=== PATIENT | female | born 1975 | race Caucasian/White ===

== ENCOUNTER → 2016-12-15 | Outpatient (CLI) | payer OTHER ==
[~2016-12-15] MED LIST: ANAPROX DS550 MG PO; BENTYL20 MG PO; CIPRO250 MG PO; CIPRO500 MG PO; FLUCONAZOLE100 MG PO; MULTIVITAMIN1 CTB PO; NORCO 5-325 TA1 EACH PO; PERCOCET 325 MG1 TA2; PERCOCET 325 MG1 TA2 PO; VIBRA-TAB100 MG PO; VICODIN 500 MG-1 TAB PO; ZOFRAN4 MG PO
[2016-12-15 14:22] LABS: BASO % 0.5 % (0.0-1.0); EOS # 0.1 10*3/uL (0.0-0.4); EOS % 1.4 % (1.0-4.0); HEMATOCRIT 45.5 % (37.0-47.0); HEMOGLOBIN 15.2 g/dl (12.0-16.0); LYMPH # 1.5 10*3/uL (1.3-4.4); LYMPH % 17.5 % (27.0-41.0); MEAN CELL VOLUME 96.4 fl (81.0-99.0); MEAN CORPUSCULAR HGB 32.2 pg (27.0-31.0); MEAN CORPUSCULAR HGB CONC 33.4 g/dl (33.0-37.0); MEAN PLATELET VOLUME 9.4 fl (9.6-12.3); MONO # 0.5 10*3/uL (0.1-1.0); MONO % 5.7 % (3.0-9.0); NEUT # 6.3 10*3/uL (2.3-7.9); NEUT % 74.7 % (47.0-73.0); PLATELET COUNT AUTOMATED 245 10*3/uL (130-400); RED BLOOD COUNT 4.72 10*6/uL (4.10-5.10); RED CELL DISTRI WIDTH 13.1 % (0-14.5); WHITE BLOOD COUNT 8.4 10*3/uL (4.8-10.8)
[2016-12-15 14:48] LABS: ALBUMIN 3.8 gm/dl (3.1-4.5); ALKALINE PHOSPHATASE 57 U/L (45-117); BUN 11 mg/dl (7-24); CHLORIDE 107 mmol/L (98-107); CHOLESTEROL 141 mg/dL (<200); CPK 46 U/L (26-192); CREATININE 0.79 mg/dL (0.55-1.02); FREE T4 0.99 ng/dl (0.76-1.46); HDL CHOLESTEROL 43 mg/dl (40-60); LDL CHOLESTEROL 85 mg/dL (9-159); POTASSIUM 4.3 mmol/L (3.5-5.1); SGOT/AST 9 IU/L (3-35); SGPT/ALT 16 U/L (12-78); SODIUM 139 mmol/L (136-145); TOTAL PROTEIN 6.9 gm/dL (6.4-8.2); TRIGLYCERIDES 65 mg/dl (<150); VLDL CHOLESTEROL 13 mg/dL (6-40)
[2016-12-15 14:53] LABS: THYROID STIM HORMONE (HS) 0.701 uIU/ml (0.358-4.75)
[2016-12-15 15:42] LABS: VITAMIN D, 25-HYDROXY 32.4 ng/mL (30-100)
== END | disposition home or self-care (01) ==
LOC: LAB 13:44
PROVIDERS: Internal Medicine
DX: Z13.1 Encounter for screening for diabetes mellitus (principal); E55.9 Vitamin D deficiency, unspecified; R53.81 Other malaise

== ENCOUNTER 2017-05-19 00:49 | Emergency (ER) | payer OTHER ==
[~2017-05-19] VITALS: Ht 177.8 cm; Wt 72.6 kg
[2017-05-19 01:10] LABS: BASO # 0.1 10*3/uL (0.0-0.1); BASO % 0.9 % (0.0-1.0); EOS # 0.2 10*3/uL (0.0-0.4); EOS % 2.1 % (1.0-4.0); HEMATOCRIT 43.8 % (37.0-47.0); HEMOGLOBIN 15.1 g/dl (12.0-16.0); LYMPH # 1.9 10*3/uL (1.3-4.4); LYMPH % 21.5 % (27.0-41.0); MEAN CORPUSCULAR HGB 32.8 pg (27.0-31.0); MEAN CORPUSCULAR HGB CONC 34.5 g/dl (33.0-37.0); MEAN PLATELET VOLUME 9.1 fl (9.6-12.3); MONO # 0.5 10*3/uL (0.1-1.0); NEUT % 69.2 % (47.0-73.0); PLATELET COUNT AUTOMATED 283 10*3/uL (130-400); RED BLOOD COUNT 4.61 10*6/uL (4.10-5.10); RED CELL DISTRI WIDTH 13.1 % (0-14.5); WHITE BLOOD COUNT 8.7 10*3/uL (4.8-10.8)
[2017-05-19 01:21] LABS: ACT PARTIAL THROMBO TIME 28.1 SECONDS (20.8-31.5)
[2017-05-19 01:30] LABS: ALBUMIN 4.2 gm/dl (3.1-4.5); ALKALINE PHOSPHATASE 71 U/L (45-117); BUN 9 mg/dl (7-24); CHLORIDE 107 mmol/L (98-107); CREATININE 0.68 mg/dL (0.55-1.02); POTASSIUM 3.8 mmol/L (3.5-5.1); SGPT/ALT 26 U/L (12-78); SODIUM 139 mmol/L (136-145); TOTAL PROTEIN 7.4 gm/dL (6.4-8.2)
[2017-05-19 01:35] LABS: SGOT/AST 13 IU/L (3-35); TROPONIN I < 0.015 ng/ml (<0.045)
[2017-05-19 03:28] VITALS: BP 123/75
[2017-05-19] MEDS ORDERED: PROTONIX40 MG PO (03:38)
== END 2017-05-19 03:51 | disposition home or self-care (01) ==
LOC: ED 00:49
PROVIDERS: Emergency Medicine Emergency Medical Services
DX: K52.9 Noninfective gastroenteritis and colitis, unspecified (principal); K21.9 Gastro-esophageal reflux disease without esophagitis; Z88.0 Allergy status to penicillin

== ENCOUNTER 2017-09-10 21:18 | Inpatient (IN) | payer OTHER ==
[~2017-09-10] VITALS: Ht 177.8 cm; Wt 79.8 kg
--- NOTE | ~2017-09-10 | DS ---
[place], [place] DISCHARGE SUMMARY NAME: KAM BOWER UNIT #: [id number] ROOM: 425 DOCTOR: JOSUE SERRA MD BIRTHDATE: [birth year] DOS: 09/14/2017 DISCHARGE DIAGNOSES: 1. Methicillin-resistant Staphylococcus aureus cellulitis involving the skin on the back of her right knee with significant induration and pain and difficulty walking. 2. Nicotine smoke dependence, 1 pack of cigarettes a day. 3. Previous history of pneumonia. HOSPITAL COURSE: The patient presented to [facility] Emergency Department with an insect bite at the back of her right knee and within the next few days, she developed a black spot at the site of the bite and spreading redness and induration with significant pain and high-grade fevers along with body aches and some nausea. The patient also had chills and rigors. The patient was admitted to the hospital and treated with IV vancomycin and Rocephin. Initially doxycycline was started, but then discontinued by Infectious Disease specialist. The patient's redness and swelling and induration have significantly improved with antibiotic treatment and no abscess was found on the CT scan and later on ultrasound. The patient still has some difficulty and pain when she walks because the infection is in the crease on the back of right knee, but it is much improved. The patient can stay off work for a week and hopefully then she can go back to work. Nicotine smoke dependence with the patient smoking 1 pack of cigarettes a day. The patient encouraged to stop smoking cigarettes. The patient says she does not need any nicotine patch or any other treatment. LABORATORY DATA: Lyme's titer was negative. No leukocytosis. Ultrasound and CT scan of the right knee area were normal. No signs of abscess or cellulitis involving the skin. Blood cultures were negative. DISCHARGE MANAGEMENT: Keflex 500 mg 3 times a day for 10 days, Bactrim-DS b.i.d. for 10 days. FOLLOWUP: With me in office next week. [place], [place] DISCHARGE SUMMARY NAME: KAM BOWER UNIT #: [id number] ROOM: 425 DOCTOR: JOSUE SERRA MD BIRTHDATE: [birth year] JOSUE SERRA MD CM:ANAND [id number] JOSUE SERRA MD 09/14/17 2014 interface
--- NOTE | ~2017-09-10 | PR ---
[place], [place] PROGRESS NOTE NAME: KAM BOWER UNIT #: [id number] ROOM: 425 DOCTOR: JOSUE SERRA MD BIRTHDATE: [birth year] DOS: 09/12/2017 SUBJECTIVE: The patient is still having significant pain, soreness and skin changes behind the right knee. VITAL SIGNS: Blood pressure 100/54, heart rate of 77 beats per minute, breathing normally, afebrile. IMPRESSION: The patient with severe cellulitis along with fever and difficulty with ambulation because of pain related to the cellulitis right behind her right knee. The patient has some skin changes locally for which I will check an ultrasound to see if an abscess is forming in the area, which may need to be drained. The patient is being treated with vancomycin and cefazolin intravenously. The patient with insect bite, possibility of a tick bite, patient receiving doxycycline. Nicotine smoke dependence, the patient encouraged to stop. JOSUE SERRA MD CM:PNTRANS [id number] JOSUE SERRA MD 09/13/17 0528 interface
--- NOTE | ~2017-09-10 | PR ---
[place], [place] PROGRESS NOTE NAME: KAM BOWER UNIT #: [id number] ROOM: 425 DOCTOR: JOSUE SERRA MD BIRTHDATE: [birth year] DOS: 09/13/2017 SUBJECTIVE: The patient's swelling and redness in the back of the right knee continues to improve. OBJECTIVE: VITAL SIGNS: Blood pressure 109/67, breathing 20 times per minute, tachycardic at 110 beats per minute, afebrile. GENERAL APPEARANCE: The patient is alert and oriented x 3, in no visible distress. HEENT AND NECK: Exam within normal limits. CARDIOVASCULAR SYSTEM: Heart rate is regular in rate and rhythm. S1 and S2 normally audible. LUNGS: Clear to auscultation. ABDOMEN: Soft, nontender. No obvious organomegaly. Bowel sounds are present. EXTREMITIES: Without significant cyanosis or edema. Induration, redness and swelling behind the right knee, which is improving. IMPRESSION: 1. The patient with methicillin-resistant Staphylococcus aureus cellulitis at the back of the right knee after an insect bite. Continues to improve with IV vancomycin. Dr. Jameel Mendoza has recommended couple of more days of IV antibiotics, then patient to be discharged to home on oral antibiotics. I will continue treatment. 2. Nicotine smoke dependence. The patient encouraged to stop smoking cigarettes. 3. Some suspicion of tick bite because of the skin rash. Lyme titer has been negative, but the patient is being treated with doxycycline as a precaution. JOSUE SERRA MD CM:PNTRANS [id number] JOSUE SERRA MD 09/25/17 0723 interface
--- NOTE | ~2017-09-10 | WRIGHTHP ---
[place], [place] PATIENT HISTORY AND PHYSICAL EXAM NAME: KAM BOWER [facility] #: [id number] UNIT #: [id number] ROOM: 425 DOCTOR: JOSUE SERRA MD BIRTHDATE: [birth year] DOS: 09/11/2017 HISTORY OF PRESENT ILLNESS: The patient is a 42-year-old female with a past medical history of: 1. Nicotine smoke dependence. 2. Previous history of pneumonia. The patient presented to the Emergency Department at [facility] with complaints of an insect bite at the back of her right knee, which resulted in a black spot at the site of the bite and spreading redness, swelling and pain. Later on the patient developed high grade fevers and body aches. The patient was sent to the Emergency Department and evaluated with a CAT scan, which did not show any abscess, but because of the fever, chills, rigors, body aches and an expanding redness and skin infection around the bite site, the patient was admitted for further management and Infectious Disease consult was obtained. After being started on IV antibiotics, the patient still has significant pain when she tries to get up and walk, but otherwise the redness has started improving. REVIEW OF SYSTEMS: LUNGS: No increasing shortness of breath. GASTROINTESTINAL: No nausea, vomiting, diarrhea or constipation. CARDIOVASCULAR: No chest pains or palpitations. FAMILY HISTORY: Noncontributory. SOCIAL HISTORY: Smokes 1 pack of cigarettes a day. Denies any alcohol or drug abuse. HOME MEDICATIONS: None. ALLERGIES: Known allergies to PENICILLIN. PHYSICAL EXAMINATION: GENERAL: Alert and oriented x 3, in no visible distress. HEENT AND NECK: Extraocular movements are intact. Sclerae are anicteric. Oral mucosa is moist and clean. No obvious facial weakness. Neck is supple without any lymphadenopathy. No thyromegaly. No JVD. No carotid arterial bruits. LUNGS: Clear to auscultation. No wheezing. No rhonchi. CARDIOVASCULAR SYSTEM: Heart rate is regular in rate and rhythm. S1 and S2 normally audible. No significant murmur or any other abnormal cardiac sounds. ABDOMEN: Soft, nontender. No obvious organomegaly. Bowel sounds are present. No obvious herniation. EXTREMITIES: Redness and swelling at the back of the right knee, measuring about 4inches, but apparently reducing from where the margins were in the ER last evening in the center of black spot. CENTRAL NERVOUS SYSTEM: Alert and oriented x 3. Cranial nerves II-XII are intact. Speech is normal. The patient is able to move all extremities. Normal muscle strength. Deep tendon reflexes are equal on both sides. Plantars were downgoing. [place], [place] PATIENT HISTORY AND PHYSICAL EXAM NAME: KAM BOWER UNIT #: [id number] ROOM: 425 DOCTOR: JOSUE SERRA MD BIRTHDATE: [birth year] LABORATORY DATA: Normal serum electrolytes. Normal CBC. Normal lactic acid level. IMPRESSION AND PLAN: 1. The patient is showing early signs of sepsis with chills, rigor, fever, body aches and rapidly spreading cellulitis at the back of the right knee. Since it was an insect bite, Lyme's disease is being considered and I will keep her on doxycycline for 2 weeks. The patient is also started on cefazolin and vancomycin. Infectious Disease consult has been obtained and the patient appears to be improving. 2. Nicotine smoke dependence. The patient smokes 1 pack of cigarettes a day. I had a good discussion with her regarding smoking cessation and she is considering it and she will let me know tomorrow. JOSUE SERRA MD CM:HISPHYS:PATIENT HISTORY AND PHYSICAL EXAMINATION [id number] JOSUE SERRA MD 09/11/17 1137 interface
[~2017-09-10 21:18] MED LIST changes: +PROTONIX40 MG PO
[2017-09-10 22:21] LABS: BASO % 0.4 % (0.0-1.0); EOS # 0.1 10*3/uL (0.0-0.4); EOS % 1.4 % (1.0-4.0); HEMATOCRIT 43.1 % (37.0-47.0); HEMOGLOBIN 14.5 g/dl (12.0-16.0); MEAN CELL VOLUME 95.8 fl (81.0-99.0); MEAN CORPUSCULAR HGB 32.2 pg (27.0-31.0); MEAN CORPUSCULAR HGB CONC 33.6 g/dl (33.0-37.0); MEAN PLATELET VOLUME 9.3 fl (9.6-12.3); MONO # 0.6 10*3/uL (0.1-1.0); MONO % 7.2 % (3.0-9.0); NEUT # 6.3 10*3/uL (2.3-7.9); NEUT % 78.9 % (47.0-73.0); PLATELET COUNT AUTOMATED 208 10*3/uL (130-400); RED CELL DISTRI WIDTH 13.4 % (0-14.5); WHITE BLOOD COUNT 7.9 10*3/uL (4.8-10.8)
[2017-09-10 22:34] LABS: BILIRUBIN NEGATIVE (NEGATIVE); BLOOD NEGATIVE (NEGATIVE); CLARITY CLEAR (CLEAR); COLOR YELLOW (YELLOW); GLUCOSE NEGATIVE (NEGATIVE); KETONE NEGATIVE (NEGATIVE); LEUKO ESTERASE NEGATIVE (NEGATIVE); NITRITE NEGATIVE (NEGATIVE); SPECIFIC GRAVITY <= 1.005 (1.005-1.030); UROBILINOGEN 0.2 E.U./dl (0.2-1.0)
[2017-09-10 22:35] LABS: ALBUMIN 3.8 gm/dl (3.1-4.5); ALKALINE PHOSPHATASE 65 U/L (45-117); BUN 8 mg/dl (7-24); CHLORIDE 108 mmol/L (98-107); POTASSIUM 3.5 mmol/L (3.5-5.1); SGOT/AST 13 IU/L (3-35); SGPT/ALT 22 U/L (12-78); SODIUM 141 mmol/L (136-145)
[2017-09-10 22:46] LABS: RBC 0-2 rbc/hpf (0-2)
[2017-09-11 01:05] VITALS: BP 106/64
[2017-09-11 01:46] VITALS: BP 124/73
[2017-09-11 06:19] LABS: BASO % 0.4 % (0.0-1.0); EOS # 0.1 10*3/uL (0.0-0.4); EOS % 0.8 % (1.0-4.0); HEMATOCRIT 42.3 % (37.0-47.0); HEMOGLOBIN 14.3 g/dl (12.0-16.0); LYMPH # 0.9 10*3/uL (1.3-4.4); LYMPH % 11.2 % (27.0-41.0); MEAN CELL VOLUME 95.3 fl (81.0-99.0); MEAN CORPUSCULAR HGB 32.2 pg (27.0-31.0); MEAN CORPUSCULAR HGB CONC 33.8 g/dl (33.0-37.0); MEAN PLATELET VOLUME 9.5 fl (9.6-12.3); MONO # 0.6 10*3/uL (0.1-1.0); MONO % 7.8 % (3.0-9.0); NEUT # 6.1 10*3/uL (2.3-7.9); NEUT % 79.7 % (47.0-73.0); PLATELET COUNT AUTOMATED 202 10*3/uL (130-400); RED BLOOD COUNT 4.44 10*6/uL (4.10-5.10); RED CELL DISTRI WIDTH 13.4 % (0-14.5); WHITE BLOOD COUNT 7.7 10*3/uL (4.8-10.8)
[2017-09-11 06:40] LABS: BUN 7 mg/dl (7-24); CHLORIDE 107 mmol/L (98-107); CREATININE 0.72 mg/dL (0.55-1.02); POTASSIUM 3.9 mmol/L (3.5-5.1); SODIUM 138 mmol/L (136-145)
[2017-09-11 08:00] VITALS: BP 112/70
[2017-09-11 12:00] VITALS: BP 109/66
[2017-09-11 16:00] VITALS: BP 116/67
[2017-09-11 20:00] VITALS: BP 108/63
[2017-09-12] VITALS: BP 109/62
[2017-09-12 07:39] LABS: BASO % 0.5 % (0.0-1.0); EOS # 0.2 10*3/uL (0.0-0.4); EOS % 2.5 % (1.0-4.0); HEMATOCRIT 40.3 % (37.0-47.0); HEMOGLOBIN 13.4 g/dl (12.0-16.0); LYMPH % 15.7 % (27.0-41.0); MEAN CELL VOLUME 96.6 fl (81.0-99.0); MEAN CORPUSCULAR HGB 32.1 pg (27.0-31.0); MEAN CORPUSCULAR HGB CONC 33.3 g/dl (33.0-37.0); MEAN PLATELET VOLUME 9.8 fl (9.6-12.3); MONO # 0.9 10*3/uL (0.1-1.0); MONO % 13.7 % (3.0-9.0); NEUT # 4.4 10*3/uL (2.3-7.9); NEUT % 67.4 % (47.0-73.0); PLATELET COUNT AUTOMATED 191 10*3/uL (130-400); RED BLOOD COUNT 4.17 10*6/uL (4.10-5.10); RED CELL DISTRI WIDTH 13.4 % (0-14.5); WHITE BLOOD COUNT 6.5 10*3/uL (4.8-10.8)
[2017-09-12 08:00] VITALS: BP 110/74; BP 116/78
[2017-09-12 08:06] LABS: BUN 8 mg/dl (7-24); CHLORIDE 106 mmol/L (98-107); CREATININE 0.69 mg/dL (0.55-1.02); POTASSIUM 4.1 mmol/L (3.5-5.1); SODIUM 140 mmol/L (136-145)
[2017-09-12 12:00] VITALS: BP 100/54
[2017-09-12 16:00] VITALS: BP 126/75
[2017-09-12 20:00] VITALS: BP 106/60
[2017-09-13] VITALS: BP 108/54
[2017-09-13 07:45] LABS: BASO % 0.6 % (0.0-1.0); EOS # 0.2 10*3/uL (0.0-0.4); HEMATOCRIT 41.7 % (37.0-47.0); HEMOGLOBIN 13.6 g/dl (12.0-16.0); LYMPH # 1.3 10*3/uL (1.3-4.4); LYMPH % 27.9 % (27.0-41.0); MEAN CORPUSCULAR HGB 31.6 pg (27.0-31.0); MEAN CORPUSCULAR HGB CONC 32.6 g/dl (33.0-37.0); MEAN PLATELET VOLUME 9.4 fl (9.6-12.3); MONO # 0.4 10*3/uL (0.1-1.0); NEUT # 2.8 10*3/uL (2.3-7.9); NEUT % 58.3 % (47.0-73.0); PLATELET COUNT AUTOMATED 223 10*3/uL (130-400); RED CELL DISTRI WIDTH 13.2 % (0-14.5); WHITE BLOOD COUNT 4.8 10*3/uL (4.8-10.8)
[2017-09-13 08:00] VITALS: BP 100/60
[2017-09-13 08:14] LABS: BUN 10 mg/dl (7-24); CHLORIDE 106 mmol/L (98-107); POTASSIUM 3.7 mmol/L (3.5-5.1); SODIUM 141 mmol/L (136-145)
[2017-09-13 08:16] LABS: CREATININE 0.75 mg/dL (0.55-1.02)
[2017-09-13 12:00] VITALS: BP 109/67
[2017-09-13 16:00] VITALS: BP 110/77
[2017-09-13 20:00] VITALS: BP 113/73
[2017-09-14] VITALS: BP 127/80
[2017-09-14 07:29] LABS: BASO % 0.7 % (0.0-1.0); EOS # 0.2 10*3/uL (0.0-0.4); EOS % 3.7 % (1.0-4.0); HEMATOCRIT 37.4 % (37.0-47.0); HEMOGLOBIN 12.6 g/dl (12.0-16.0); LYMPH # 1.3 10*3/uL (1.3-4.4); LYMPH % 22.5 % (27.0-41.0); MEAN CELL VOLUME 95.2 fl (81.0-99.0); MEAN CORPUSCULAR HGB 32.1 pg (27.0-31.0); MEAN CORPUSCULAR HGB CONC 33.7 g/dl (33.0-37.0); MEAN PLATELET VOLUME 9.2 fl (9.6-12.3); MONO # 0.4 10*3/uL (0.1-1.0); MONO % 7.3 % (3.0-9.0); NEUT # 3.8 10*3/uL (2.3-7.9); NEUT % 65.6 % (47.0-73.0); PLATELET COUNT AUTOMATED 216 10*3/uL (130-400); RED BLOOD COUNT 3.93 10*6/uL (4.10-5.10); RED CELL DISTRI WIDTH 13.1 % (0-14.5); WHITE BLOOD COUNT 5.7 10*3/uL (4.8-10.8)
[2017-09-14 07:50] LABS: BUN 11 mg/dl (7-24); CHLORIDE 111 mmol/L (98-107); CREATININE 0.59 mg/dL (0.55-1.02); SODIUM 143 mmol/L (136-145)
[2017-09-14 08:00] VITALS: BP 116/74
[2017-09-14 16:00] VITALS: BP 115/68
[2017-09-14] MEDS ORDERED: KEFLEX500 M1 PO (16:32)
[2017-09-14] MEDS ORDERED: BACTRIM 400-801 EACH PO (16:32)
== END 2017-09-14 18:55 | disposition home or self-care (01) | DRG 872 ==
LOC: ED 21:18 → EDHOLD 09-11 01:19 → 4E 09-11 01:19
PROVIDERS: Emergency Medicine; Internal Medicine
DX: A41.9 Sepsis, unspecified organism (principal); L03.115 Cellulitis of right lower limb; F17.210 Nicotine dependence, cigarettes, uncomplicated; B95.62 Methicillin resistant Staphylococcus aureus infection as the cause of diseases classified elsewhere; S80.261A Insect bite (nonvenomous), right knee, initial encounter; W57.XXXA Bitten or stung by nonvenomous insect and other nonvenomous arthropods, initial encounter; K21.9 Gastro-esophageal reflux disease without esophagitis; Z87.440 Personal history of urinary (tract) infections; Z98.51 Tubal ligation status; Z82.49 Family history of ischemic heart disease and other diseases of the circulatory system; Z83.3 Family history of diabetes mellitus; Z80.9 Family history of malignant neoplasm, unspecified; Z88.0 Allergy status to penicillin; Y93.89 Activity, other specified; Y92.89 Other specified places as the place of occurrence of the external cause; Y99.8 Other external cause status

== ENCOUNTER → 2018-10-22 | Outpatient (CLI) | payer OTHER ==
[~2018-10-22] MED LIST changes: +BACTRIM 400-801 EACH PO; +KEFLEX500 M1 PO
== END | disposition home or self-care (01) ==
LOC: US 13:27
DX: S70.11XA Contusion of right thigh, initial encounter (principal); S76.219A Strain of adductor muscle, fascia and tendon of unspecified thigh, initial encounter; R60.9 Edema, unspecified; R20.8 Other disturbances of skin sensation; X58.XXXA Exposure to other specified factors, initial encounter; Y93.89 Activity, other specified; Y92.89 Other specified places as the place of occurrence of the external cause; Y99.8 Other external cause status

== ENCOUNTER → 2018-11-05 | Outpatient (CLI) | payer OTHER ==
[2018-11-05 06:51] LABS: BASO # 0.1 10*3/uL (0.0-0.1); BASO % 0.8 % (0.0-1.0); EOS # 0.2 10*3/uL (0.0-0.4); EOS % 2.8 % (1.0-4.0); HEMOGLOBIN 13.5 g/dl (12.0-16.0); LYMPH # 1.9 10*3/uL (1.3-4.4); LYMPH % 24.8 % (27.0-41.0); MEAN CELL VOLUME 99.3 fl (81.0-99.0); MEAN CORPUSCULAR HGB 32.7 pg (27.0-31.0); MEAN CORPUSCULAR HGB CONC 32.9 g/dl (33.0-37.0); MEAN PLATELET VOLUME 9.2 fl (9.6-12.3); MONO # 0.5 10*3/uL (0.1-1.0); MONO % 6.6 % (3.0-9.0); NEUT # 5.1 10*3/uL (2.3-7.9); NEUT % 64.9 % (47.0-73.0); PLATELET COUNT AUTOMATED 314 10*3/uL (130-400); RED BLOOD COUNT 4.13 10*6/uL (4.10-5.10); RED CELL DISTRI WIDTH 13.3 % (0-14.5); WHITE BLOOD COUNT 7.8 10*3/uL (4.8-10.8)
[2018-11-05 07:12] LABS: ALBUMIN 3.6 gm/dl (3.1-4.5); ALKALINE PHOSPHATASE 66 U/L (45-117); BUN 15 mg/dl (7-24); CHLORIDE 109 mmol/L (98-107); CREATININE 0.63 mg/dL (0.55-1.02); POTASSIUM 3.9 mmol/L (3.5-5.1); SGOT/AST 9 IU/L (3-35); SGPT/ALT 21 U/L (12-78); SODIUM 136 mmol/L (136-145); TOTAL PROTEIN 6.9 gm/dL (6.4-8.2)
== END | disposition home or self-care (01) ==
LOC: LAB 06:06
PROVIDERS: Specialist
DX: Z01.818 Encounter for other preprocedural examination (principal); S76.311A Strain of muscle, fascia and tendon of the posterior muscle group at thigh level, right thigh, initial encounter; X58.XXXA Exposure to other specified factors, initial encounter; Y93.89 Activity, other specified; Y92.89 Other specified places as the place of occurrence of the external cause; Y99.8 Other external cause status

== ENCOUNTER → 2019-11-24 | Outpatient (CLI) | payer OTHER | END | disposition home or self-care (01) | LOC: LAB 23:10 | PROVIDERS: ATTEND Nurse Practitioner Family | DX: R30.0 Dysuria (principal) ==

== ENCOUNTER → 2020-12-09 | Outpatient (CLI) | payer OTHER | END | disposition home or self-care (01) | LOC: LAB 11:24 | PROVIDERS: ATTEND Internal Medicine | DX: Z20.822 Contact with and (suspected) exposure to COVID-19 (principal) ==